=== PATIENT | female | born 1970 | race Caucasian/White ===

== ENCOUNTER 2017-10-27 23:23 | Emergency (ER) | payer BC ==
--- NOTE | 2017-10-27 23:59 | EDM.PDOC ---
ED HPI GENERAL MEDICAL PROBLEM - General Chief Complaint: Lower Extremity Injury/Pain Stated Complaint: RIGHT ANKLE HURTS Time Seen by Provider: 10/27/17 23:57 Source of Information: Reports: Patient History Limitations: Reports: No Limitations - History of Present Illness INITIAL COMMENTS - FREE TEXT/NARRATIVE: Twisted right ankle at 2030 tonight getting out of 4-cormier. Complains of lateral right ankle pain and swelling. Onset: Today Location: Reports: Lower Extremity, Right Quality: Reports: Ache Severity: Moderate Treatments VOICE ENGINEER: Reports: Cold Therapy, NSAIDS R lateral ankle Pain Score (Numeric/FACES): 8 - Related Data Allergies Allergy/AdvReac Type Severity Reaction Status Date / Time Sulfa (Sulfonamide Allergy Rash Verified 10/27/17 23:34 Antibiotics) Home Meds: Home Meds Norethindrone 1 tab ASDIRECTED 10/27/17 [History] Acetaminophen/HYDROcodone [[place] 325-5 MG] 1 - 2 tab PO Q6H PRN #20 tab [Rx] Ketorolac [Toradol] 10 mg PO Q6H PRN #20 tab 10/28/17 [Rx] Past Medical History Genitourinary History: Reports: None Neurological History: Reports: Concussion - Infectious Disease History Infectious Disease History: Reports: Chicken Pox - Past Surgical History Female Surgical History: Reports: LEEP Social & Family History - Family History Family Medical History: Noncontributory - Tobacco Use Smoking Status *Q: Never Smoker - Caffeine Use Caffeine Use: Reports: Coffee, Soda, Tea - Alcohol Use Days Per Week of Alcohol Use: 2 Number of Drinks Per Day: 2 Total Drinks Per Week: 4 - Recreational Drug Use Recreational Drug Use: No Review of Systems - Review of Systems Review Of Systems: ROS reveals no pertinent complaints other than HPI. ED EXAM, GENERAL - Physical Exam Exam: See Below Exam Limited By: No Limitations General Appearance: Alert, WD/WN, No Apparent Distress Nose: Normal Inspection Throat/Mouth: No Airway Compromise Head: Atraumatic, Normocephalic Neck: Full Range of Motion Respiratory/Chest: No Respiratory Distress Peripheral Pulses: 2+: Dorsalis Pedis (R) Back Exam: Full Range of Motion Extremities: Other (tenderness and swelling to lateral malleolus of right ankle , no laxity) Neurological: Alert, No Motor/Sensory Deficits Psychiatric: Normal Affect, Normal Mood Skin Exam: Warm, Dry, Intact ED TRAUMA EXTREMITY PROCEDURES - Splinting Right Lower Extremity Splint Site: right ankle Pre-Procedure NV Status: Normal Post-Procedure NV Status: Normal Splint Material: Air Splint Provider Post-Splint Application NV Check: NV Status Normal, Good Position Complications: No Course - Vital Signs Last Recorded V/S: Last Vital Signs Temp 36.8 C 10/27/17 23:29 Pulse 80 10/27/17 23:29 Resp 18 10/27/17 23:29 BP 126/66 10/27/17 23:29 Pulse Ox 100 10/27/17 23:29 - Orders/Labs/Meds Orders: Active Orders 24 hr Category Date Time Status Splinting [RC] ASDIRECTED Care 10/28/17 00:31 Ordered Ankle Min 3V Rt [CR] Stat Exams 10/27/17 23:56 Taken - Radiology Interpretation Free Text/Narrative:: Right Ankle XR: No acute osseous abnormality, +soft tissue swelling Departure - Departure Time of Disposition: 00:33 Disposition: Home, Self-Care 01 Condition: Good Clinical Impression: Right ankle sprain Qualifiers: Encounter type: initial encounter Involved ligament of ankle: unspecified ligament Qualified Code(s): S93.401A - Sprain of unspecified ligament of right ankle, initial encounter - Discharge Information *PRESCRIPTION DRUG MONITORING PROGRAM REVIEWED*: Yes *COPY OF PRESCRIPTION DRUG MONITORING REPORT IN PATIENT HATTIE: No Prescriptions: Acetaminophen/HYDROcodone [[place] 325-5 MG] 1 - 2 tab PO Q6H PRN #20 tab PRN Reason: Pain Ketorolac [Toradol] 10 mg PO Q6H PRN #20 tab PRN Reason: Pain Instructions: How to Use a Stirrup Ankle Brace, [id number], Ankle Sprain, [id number], Crutch Use, Adult, [id number] Referrals: Karan Guillaume MD [Primary Care Provider] - Forms: ED Department Discharge Additional Instructions: Elevate the extremity, apply ice, weight bear as tolerated, follow up with orthopedic surgery in 1 week if symptoms don't improve. Fill prescriptions for Toradol and [place] and take as directed. - My Orders Last 24 Hours: My Active Orders 10/27/17 23:56 Ankle Min 3V Rt [CR] Stat 10/28/17 00:31 Splinting [RC] ASDIRECTED - Assessment/Plan Last 24 Hours: My Active Orders 10/27/17 23:56 Ankle Min 3V Rt [CR] Stat 10/28/17 00:31 Splinting [RC] ASDIRECTED
--- NOTE | 2017-10-31 15:25 | CR ---
INDICATION: Fall from 4-cormier. RIGHT ANKLE, THREE VIEWS: FINDINGS: No comparison studies. There is prominent soft tissue swelling over the lateral malleolus. I do not see an acute fracture or dislocation. The ankle mortise looks symmetric. The talar dome looks smooth. IMPRESSION: No acute bony fracture. If symptoms persist, consider followup x- rays in 7-10 days. CR
== END 2017-10-28 01:17 | disposition home or self-care (01) ==
LOC: FB.ED 23:23
DX: S93.401A Sprain of unspecified ligament of right ankle, initial encounter (principal); Z88.2 Allergy status to sulfonamides; X50.1XXA Overexertion from prolonged static or awkward postures, initial encounter
CPT/HCPCS: 29515; 73610-RT; 99283